=== PATIENT | female | born 2000 | race African-American/Black ===

== ENCOUNTER 2022-10-04 00:47 | Emergency (ER) | payer OTHER ==
[~2022-10-04] VITALS: Ht 172.7 cm; Wt 1126.6 kg
[2022-10-04 00:54] VITALS: BP 129/94
[2022-10-04] MEDS ORDERED: ONDANSETRON 4MG ODT PO ONE (05:45)
[2022-10-04] MEDS ORDERED: ALBU6.7H3 INH (08:03)
[2022-10-04] MEDS ORDERED: GUAI600T26 MT (08:03)
[2022-10-04] MEDS ORDERED: P50 MT (08:03)
== END 2022-10-04 08:34 | disposition home or self-care (01) ==
LOC: ER 00:47
DX: J06.9 Acute upper respiratory infection, unspecified (principal); J45.909 Unspecified asthma, uncomplicated; Z20.822 Contact with and (suspected) exposure to COVID-19; Z86.59 Personal history of other mental and behavioral disorders; Z98.890 Other specified postprocedural states
CPT/HCPCS: 71045; 81025; 87426; 87804; 99284; C9803; Q0162

== ENCOUNTER 2024-11-17 18:24 | Emergency (ER) | payer OTHER ==
[~2024-11-17] VITALS: Ht 172.7 cm; Wt 120.0 kg
[~2024-11-17 18:24] MED LIST: ALBU6.7H3 INH; GUAI600T26 MT; P50 MT
[2024-11-17 18:28] VITALS: O2SAT 99
[2024-11-17 19:04] LABS: BASOPHILS % 0.2 % (0.0-2.0); EOSINOPHILS % 3.3 % (0.0-5.0); HEMATOCRIT. 38.2 % (36.0-48.0); HEMOGLOBIN. 12.5 g/dL (12.0-16.0); LYMPHOCYTES % 18.4 % (20.0-50.0); MEAN CORPUSCULAR HEMOGLOBIN 26.5 pg (28.0-32.0); MEAN CORPUSCULAR HGB CONC 32.9 g/dL (31.0-37.0); MEAN CORPUSCULAR VOLUME 80.7 fL (81.0-99.0); MEAN PLATELET VOLUME 8.6 fl (7.4-10.4); MONOCYTES % 4.2 % (2.0-8.0); NEUTROPHILS % 73.9 % (40.0-76.0); PLATELET 347 x1000/uL (130-400); RED BLOOD CELL COUNT 4.73 mill/uL (4.2-5.4); WHITE BLOOD COUNT 6.5 x1000/uL (4.5-11.0)
[2024-11-17 19:13] LABS: PROTHROMBIN TIME 11.1 sec (9.6-11.0)
[2024-11-17 19:17] LABS: CHLORIDE 107 mEq/L (98-107); POTASSIUM 3.7 mEq/L (3.5-5.1); SODIUM 139 mEq/L (136-145)
[2024-11-17 19:18] LABS: CARBON DIOXIDE 23 mEq/L (21-32)
[2024-11-17 19:19] LABS: CALCIUM 9.1 mg/dL (8.7-10.4)
[2024-11-17 19:20] LABS: HCG SCREEN NEGATIVE
[2024-11-17 19:23] LABS: CREATININE 0.8 mg/dL (0.6-1.0); GLUCOSE 89 mg/dL (70-105)
[2024-11-17 19:24] LABS: UREA NITROGEN BLOOD 16 mg/dL (9-23)
[2024-11-17 19:25] LABS: ALANINE AMINOTRANSFERASE 33 IU/L (10-49); ALBUMIN 4.6 g/dL (3.2-4.8); ASPARTATE AMINOTRANSFERASE 28 IU/L (<34); BILIRUBIN DIRECT 0.3 mg/dL (<=3.0); PROTEIN TOTAL 7.7 g/dL (6.0-8.3)
[2024-11-17] MEDS: PANTOPRAZOLE SODIUM 40 MG/VIAL IV STA (20:10)
[2024-11-17] MEDS: SODIUM CHLORIDE 0.9% 1,000 ML IV ONE (21:12)
[2024-11-17] MEDS: LOPERAMIDE HCL 2MG CAPSULE PO ONE (21:12)
[2024-11-17] MEDS: ONDANSETRON HCL 4MG/2ML INJ IV STA (21:12)
[2024-11-17] MEDS ORDERED: LOPE2CAP MT (22:02)
[2024-11-17] MEDS ORDERED: FAMO-135 MT (22:02)
[2024-11-17] MEDS ORDERED: ONDA4TAB50 MT (22:02)
[2024-11-17 22:19] VITALS: BP 129/73; PULSE 90; RESP 14; TEMP 37.4; O2SAT 99
== END 2024-11-17 22:21 | disposition home or self-care (01) ==
LOC: ER 18:24
DX: K52.9 Noninfective gastroenteritis and colitis, unspecified (principal); G43.909 Migraine, unspecified, not intractable, without status migrainosus; J45.909 Unspecified asthma, uncomplicated; Z79.899 Other long term (current) drug therapy; Z98.890 Other specified postprocedural states
CPT/HCPCS: 99284; 96365; 96366; 96375; 80076; 80048; 84703; 83690; 85025; 85610; 36415; J2405; J2470; J7030

== ENCOUNTER 2024-12-09 15:45 | Emergency (ER) | payer MEDICAID, OTHER ==
[~2024-12-09] VITALS: Ht 177.8 cm; Wt 105.0 kg
[~2024-12-09 15:45] MED LIST changes: +FAMO-135 MT; +LOPE2CAP MT; +ONDA4TAB50 MT
[2024-12-09 15:53] VITALS: TEMP 36.5; O2SAT 100
[2024-12-09] MEDS ORDERED: HYDR-459 MT (16:37)
[2024-12-09 17:08] VITALS: BP 153/82; PULSE 76; RESP 16; O2SAT 100
== END 2024-12-09 17:07 | disposition home or self-care (01) ==
LOC: ER 15:45
DX: F41.9 Anxiety disorder, unspecified (principal); J45.909 Unspecified asthma, uncomplicated; Z91.018 Allergy to other foods; Z79.899 Other long term (current) drug therapy; Z86.59 Personal history of other mental and behavioral disorders
CPT/HCPCS: 99283